=== PATIENT | male | born 1955 | race Caucasian/White ===

== ENCOUNTER 2017-12-03 13:27 | Inpatient (IN) | payer BC ==
[~2017-12-03] VITALS: Ht 177.8 cm; Wt 112.4 kg
[2017-12-03 14:21] LABS: BASOPHIL (%) 0.7 % (0-1); BASOPHIL COUNT 0.1 K/uL (0-0.1); EOSINOPHIL (%) 0.3 % (0-5); HEMATOCRIT 39.9 % (38.0-50.0); HEMOGLOBIN 14.2 G/DL (12.5-16.6); IMMATURE GRANULOCYTE (%) 0.5 % (0.0-0.7); LYMPHOCYTE (%) 24.5 % (15-42); LYMPHOCYTE COUNT 2.1 K/uL (1.0-2.8); MCH 31.1 PG (29.0-34.0); MCHC 35.6 G/DL (30.0-36.0); MCV 87.3 FL (86-99); MONOCYTE (%) 11.6 % (3-12); NEUTROPHIL (%) 62.4 % (45-76); NEUTROPHIL COUNT 5.4 K/uL (1.8-6.4); PLATELET COUNT 179 K/uL (156-360); RBC DIS.WIDTH-CV 13.1 % (11.8-14.6); RBC DIS.WIDTH-SD 41.2 % (39-53); RED BLOOD COUNT 4.57 M/uL (4.00-5.50); WHITE BLOOD COUNT 8.6 K/uL (4.1-10.2)
[2017-12-03 14:55] LABS: ALBUMIN 3.4 G/DL (3.2-4.8); CHLORIDE 95 MEQ/L (99-109); POTASSIUM 3.6 MEQ/L (3.7-5.4); SODIUM 126 MEQ/L (136-147); TOTAL BILIRUBIN 0.7 MG/DL (0.0-1.0)
[2017-12-03 15:03] LABS: ALKALINE PHOSPHATASE 70 IU/L (3-129); ALT (GPT) 28 IU/L (3-49); AST (GOT) 24 IU/L (2-34); CREATININE 1.1 MG/DL (0.6-1.3); GFR ESTIMATE (CALCULATED) > 59 mL/min/ (58.99-99999); SERUM ETHYL ALCOHOL < 10 mg/dL; TOTAL PROTEIN 6.2 G/DL (6.4-8.3); UREA NITROGEN (BUN) 15 mg/dL (9-23)
[2017-12-03 15:13] LABS: GLUCOSE 508 mg/dL (70-99)
[2017-12-03 15:14] LABS: AMPHETAMINE NEGATIVE (500 ng/mL); BARBITURATES NEGATIVE (200 ng/mL); BENZODIAZEPINES NEGATIVE (150 ng/mL); BUPRENORPHINE NEGATIVE (10 ng/mL); COCAINE NEGATIVE (150 ng/mL); METHADONE NEGATIVE (200 ng/mL); METHAMPHETAMINE NEGATIVE (500 ng/mL); OPIATES (MORPHINE) NEGATIVE (100 ng/mL); OXYCODONE NEGATIVE (100 ng/mL); PHENCYCLIDINE NEGATIVE (25 ng/mL); PROPOXYPHENE NEGATIVE (300 ng/mL); THC CANNABINOIDS NEGATIVE (50 ng/mL); TRICYCLIC ANTIDEPRESSANTS NEGATIVE (300 ng/mL)
[2017-12-03] MEDS ORDERED: BRILINTA90 MG PO (16:11)
[2017-12-03] MEDS ORDERED: DIOVAN320 MG PO (16:12)
[2017-12-03] MEDS ORDERED: IMDUR30 MG PO (16:12)
[2017-12-03] MEDS ORDERED: LOPRESSOR25 MG PO (16:12)
[2017-12-03] MEDS ORDERED: LIPITOR40 MG PO (16:12)
[2017-12-03] MEDS ORDERED: LO-DOSE ASPIRIN81 M1 PO (16:13)
[2017-12-03 17:01] LABS: APPEARANCE CLEAR ((CLEAR)); BILIRUBIN NEGATIVE; BLOOD SMALL; COLOR STRAW ((YELLOW)); GLUCOSE (STRIP) >=500; KETONES 5; LEUKOCYTES NEGATIVE; NITRITE NEGATIVE; PROTEIN (STRIP) NEGATIVE; UROBILINOGEN 0.2 MG/DL (0.2-1.0)
[2017-12-03 17:05] LABS: BACTERIA NONE SEEN /HPF; EPITHELIAL CELLS NONE SEEN /HPF; MUCUS NONE SEEN /LPF; RED BLOOD CELLS 0-5 /HPF (0-5); UCUL ADDED? NO; WHITE BLOOD CELLS 0-5 /HPF (0-5)
[2017-12-03 17:46] VITALS: BP 132/82
[2017-12-03 18:15] LABS: TROP-I INTERPRETATION NEGATIVE; TROPONIN-I 0.02 ng/mL (0.0-0.30)
[2017-12-03 19:00] VITALS: BP 136/86
[2017-12-03 22:48] LABS: TROP-I INTERPRETATION NEGATIVE; TROPONIN-I 0.02 ng/mL (0.0-0.30)
[2017-12-03 23:00] VITALS: BP 135/79
[2017-12-03 23:07] LABS: CHLORIDE 99 MEQ/L (99-109); CREATININE 1.2 MG/DL (0.6-1.3); GFR ESTIMATE (CALCULATED) > 59 mL/min/ (58.99-99999); GLUCOSE 346 mg/dL (70-99); POTASSIUM 3.8 MEQ/L (3.7-5.4); UREA NITROGEN (BUN) 13 mg/dL (9-23)
[2017-12-03 23:14] LABS: SODIUM 133 MEQ/L (136-147)
[2017-12-04 02:10] VITALS: BP 127/76
[2017-12-04 05:22] LABS: HEMATOCRIT 39.8 % (38.0-50.0); HEMOGLOBIN 13.8 G/DL (12.5-16.6); MCH 30.5 PG (29.0-34.0); MCHC 34.7 G/DL (30.0-36.0); MCV 88.1 FL (86-99); PLATELET COUNT 163 K/uL (156-360); RBC DIS.WIDTH-CV 13.3 % (11.8-14.6); RBC DIS.WIDTH-SD 43.2 % (39-53); RED BLOOD COUNT 4.52 M/uL (4.00-5.50); WHITE BLOOD COUNT 9.5 K/uL (4.1-10.2)
[2017-12-04 05:53] LABS: CHLORIDE 103 MEQ/L (99-109); CREATININE 1.1 MG/DL (0.6-1.3); GFR ESTIMATE (CALCULATED) > 59 mL/min/ (58.99-99999); GLUCOSE 295 mg/dL (70-99); POTASSIUM 3.4 MEQ/L (3.7-5.4); SODIUM 133 MEQ/L (136-147); UREA NITROGEN (BUN) 12 mg/dL (9-23)
[2017-12-04 05:56] LABS: TROP-I INTERPRETATION NEGATIVE; TROPONIN-I 0.01 ng/mL (0.0-0.30)
[2017-12-04 08:00] VITALS: BP 135/90
[2017-12-04 11:14] LABS: HEMOGLOBIN A1c (GLYCOHEMOGLOB) 16.8 % (Below 5.7)
[2017-12-04 12:19] VITALS: BP 117/76
[2017-12-04 13:12] LABS: BICARBONATE 20.9 mEq/L (22-26); CARBOXY HGB 2.6 % (0-5); COMMENTS - BLOOD GASES A+C+; DEVICE RA; METHEMOGLOBIN 0.9 % (0-1.5); PCO2 30 mm Hg (35-45); PO2 79 mm Hg (80-100); SITE LR; TOTAL RESP RATE 18 resp/min; pH 7.45 (7.35-7.45)
[2017-12-04 15:48] VITALS: BP 97/59
[2017-12-04 19:19] VITALS: BP 99/56
[2017-12-05 00:30] VITALS: BP 117/64
[2017-12-05 04:35] VITALS: BP 126/69
[2017-12-05 06:13] LABS: CHLORIDE 106 MEQ/L (99-109); GFR ESTIMATE (CALCULATED) > 59 mL/min/ (58.99-99999); GLUCOSE 221 mg/dL (70-99); POTASSIUM 3.6 MEQ/L (3.7-5.4); SODIUM 136 MEQ/L (136-147); UREA NITROGEN (BUN) 11 mg/dL (9-23)
[2017-12-05 07:52] VITALS: BP 123/65
[2017-12-05] MEDS ORDERED: LEVETIRACETAM500 MG PO (10:21)
[2017-12-05] MEDS ORDERED: VALSARTAN160 MG PO (10:21)
[2017-12-05] MEDS ORDERED: LEVEMIR FL100 UNIT/1 SC (10:21)
[2017-12-05 12:57] VITALS: BP 124/60
[2017-12-05 15:03] VITALS: BP 116/58
[2017-12-05 20:19] VITALS: BP 142/85
[2017-12-06 00:30] VITALS: BP 132/64
[2017-12-06 04:58] VITALS: BP 124/62
[2017-12-06 07:14] VITALS: BP 132/82
[2017-12-06 14:58] VITALS: BP 128/82
== END 2017-12-06 18:15 | disposition home or self-care (01) | DRG 638 ==
LOC: EME 13:27 → EDBD 13:27 → 4SOUTH 16:32 → EDOF 16:32 → CANRESERV 16:33 → ENRESERV 16:33 → 4SOUTH 17:40 → 4EAST 22:18 → 4SOUTH 22:18 → ENRESERV 22:19 → 4EAST 22:49
PROVIDERS: Emergency Medicine; Hospitalist; Internal Medicine; Internal Medicine Cardiovascular Disease
DX: E11.65 Type 2 diabetes mellitus with hyperglycemia (principal); R56.9 Unspecified convulsions; E87.1 Hypo-osmolality and hyponatremia; E78.5 Hyperlipidemia, unspecified; E66.01 Morbid (severe) obesity due to excess calories; H10.9 Unspecified conjunctivitis; E87.6 Hypokalemia; I10 Essential (primary) hypertension; I25.10 Atherosclerotic heart disease of native coronary artery without angina pectoris; Z95.5 Presence of coronary angioplasty implant and graft; I25.2 Old myocardial infarction; Z68.36 Body mass index [BMI] 36.0-36.9, adult; R32 Unspecified urinary incontinence
CPT/HCPCS: 36600; 70450; 70551; 71045; 80048; 80048 91; 80053; 81003; 82010; 82800; 82803; 82948; 83036; 83605; 84484; 85025; 85027; 93005; 93306; 93880; 93970; 95819; 99281; 99285; G0480; J1650; J1815; J1953; J7030; J7050